=== PATIENT | female | born 1940 | race Two or more races ===

== ENCOUNTER 2023-09-08 08:11 | Outpatient (CLI) | payer OTHER | END 2023-09-08 08:13 | disposition home or self-care (01) | LOC: NUCLEAR 08:11 | PROVIDERS: ATTEND Neuromusculoskeletal Medicine & OMM | DX: G30.9 Alzheimer's disease, unspecified (principal); G31.09 Other frontotemporal neurocognitive disorder | CPT/HCPCS: 78814; A9552 ==